=== PATIENT | male | born 1935 | race Caucasian/White ===

== ENCOUNTER 2020-05-14 15:41 | Emergency (ER) | payer MEDICARE, OTHER ==
--- NOTE | 2020-05-14 16:18 | EDM.PDOC ---
ED HPI GENERAL MEDICAL PROBLEM - General Chief Complaint: Skin Complaint Stated Complaint: POSS CELLULITIS TO L UPPER ARM Time Seen by Provider: 05/14/20 15:51 Source of Information: Reports: Patient History Limitations: Reports: No Limitations, Other (ED vital signs reveal a temp of 98.1, pulse 70, resp 17, BP 163/84 and pulse ox 100% on room air.) - History of Present Illness INITIAL COMMENTS - FREE TEXT/NARRATIVE: 85 year old male presents to the ED from [facility] with complaints of cellulitis to his bilateral arms. It is unknown when this started as the patient has significant demential and his son who brought him to the ED does not know either. Pt has redness and warmth to his left bicep almost circumfrentially and down to mid forearm on the dorsal aspect. Pt has small scabbed areas noted. It appears to be from scratching. Right upper bicep region also has erythema and warmth noted but not as severe as it is only located on the dorsal aspect of his humerus. Maculopapular rash also noted to right lower half of bicep and into right forearm. Pt is unable to tell me if this is pruritic or painful as he is a poor historian. Pt is afebrile in the ED. Onset: Unknown/Unsure Location: Reports: Upper Extremity, Left, Upper Extremity, Right - Related Data Allergies Allergy/AdvReac Type Severity Reaction Status Date / Time No Known Allergies Allergy Verified 05/14/20 15:54 Home Meds: Home Meds cephALEXin [Keflex] 500 mg PO QID #40 cap 05/14/20 [Rx] cephALEXin [Keflex] 500 mg PO QID #40 cap 05/14/20 [Rx] Past Medical History HEENT History: Reports: Impaired Vision Cardiovascular History: Reports: Afib, High Cholesterol, Hypertension Genitourinary History: Reports: BPH Neurological History: Reports: Alzheimers Disease Oncologic (Cancer) History: Reports: Prostate - Past Surgical History Cardiovascular Surgical History: Reports: Pacer Social & Family History - Tobacco Use Tobacco Use Status *Q: Never Tobacco User - Recreational Drug Use Recreational Drug Use: No ED ROS GENERAL - Review of Systems Review Of Systems: Comprehensive ROS is negative, except as noted in HPI. ED EXAM, SKIN/RASH Exam: See Below Exam Limited By: No Limitations General Appearance: Alert, WD/WN, No Apparent Distress Eye Exam: Bilateral Eye: PERRL Ears: Normal External Exam, Hearing Grossly Normal Nose: Normal Inspection Throat/Mouth: Normal Inspection, Normal Lips, Normal Voice, No Airway Compromise Head: Atraumatic, Normocephalic Neck: Normal Inspection, Supple, Non-Tender, Full Range of Motion Respiratory/Chest: No Respiratory Distress, Lungs Clear, Normal Breath Sounds, No Accessory Muscle Use, Chest Non-Tender Cardiovascular: Normal Peripheral Pulses, Regular Rate, Rhythm, No Murmur. No: No Edema (trace to bilateral lower extremities) Peripheral Pulses: 2+: Radial (L), Radial (R) GI/Abdominal: Normal Bowel Sounds, Soft, Non-Tender, No Distention (Male) Exam: Deferred Rectal (Males) Exam: Deferred Back Exam: Normal Inspection, Full Range of Motion Extremities: Normal Inspection, Normal Range of Motion, Non-Tender, Pedal Edema (trace to bilateral lower extremities), Increased Warmth (bilateral upper arms left worse than right. ), Redness (bilateral upper arms. Left is circumfrential; right is on the dorsal aspect of upper arm) Neurological: Alert. No: Oriented, Normal Cognition Psychiatric: Normal Affect, Normal Mood Skin: Warm, Dry, Intact, Increased Warmth (bilateral upper arms). No: Normal Color (increased redness noted to bilateral upper arms) Location, Skin: Upper Extremity, Right, Upper Extremity, Left Characteristics: Maculopapular (bilateral forearms in the proximal 1/3) Associated features: Warmth, Inflammation Lymphatic: No Adenopathy Course - Vital Signs Text/Narrative:: 85 year old male from [place] presenting with erythema and warmth to bilateral upper arms. Warmth and erythema worse on left than right. Left upper arm has numerous scabbed areas noted that appear to be from scratching. I have ordered a CBC, CMP, and CRP on this patient. Last Recorded V/S: Last Vital Signs Temp 98.1 F 05/14/20 15:51 Pulse 70 05/14/20 15:51 Resp 17 05/14/20 15:51 BP 163/84 H 05/14/20 15:51 Pulse Ox 100 05/14/20 15:51 - Orders/Labs/Meds Orders: Active Orders 24 hr Category Date Time Status CBC WITH AUTO DIFF [HEME] Stat Lab 05/14/20 16:17 Results Labs: Laboratory Tests 05/14/20 05/14/20 Range/Units 16:17 16:17 WBC 6.90 (4.23-9.07) K/mm3 RBC 4.67 (4.63-6.08) M/mm3 Hgb 13.3 L (13.7-17.5) gm/dl Hct 41.9 (40.1-51.0) % MCV 89.7 (79.0-92.2) fl MCH 28.5 (25.7-32.2) pg MCHC 31.7 L (32.2-35.5) g/dl RDW Std Deviation 43.9 (35.1-43.9) fL Plt Count 237 (163-337) K/mm3 MPV 8.5 L (9.4-12.3) fl Neut % (Auto) 42.1 (34.0-67.9) % Lymph % (Auto) 30.0 (21.8-53.1) % [place] % (Auto) 10.4 (5.3-12.2) % Eos % (Auto) 17.0 H (0.8-7.0) Baso % (Auto) 0.4 (0.1-1.2) % Neut # (Auto) 2.90 (1.78-5.38) K/mm3 Lymph # (Auto) 2.07 (1.32-3.57) K/mm3 [place] # (Auto) 0.72 (0.30-0.82) K/mm3 Eos # (Auto) 1.17 H (0.04-0.54) K/mm3 Baso # (Auto) 0.03 (0.01-0.08) K/mm3 Sodium 145 (136-145) mEq/L Potassium 3.8 (3.5-5.1) mEq/L Chloride 105 (98-107) mEq/L Carbon Dioxide 27 (21-32) mEq/L Anion Gap 16.8 H (5-15) BUN 24 H (7-18) mg/dL Creatinine 1.2 (0.7-1.3) mg/dL Est Cr Clr Drug Dosing 47.06 mL/min Estimated GFR (MDRD) 57 (>60) mL/min BUN/Creatinine Ratio 20.0 H (14-18) Glucose 109 (83-115) mg/dL Calcium 9.0 (8.5-10.1) mg/dL Total Bilirubin 0.3 (0.2-1.0) mg/dL AST 17 (15-37) U/L ALT 28 (16-63) U/L Alkaline Phosphatase 67 (46-116) U/L C-Reactive Protein 0.5 (<1.0) mg/dL Total Protein 7.1 (6.4-8.2) g/dl Albumin 3.5 (3.4-5.0) g/dl Globulin 3.6 gm/dL Albumin/Globulin Ratio 1.0 (1-2) - Re-Assessments/Exams Free Text/Narrative Re-Assessment/Exam: 05/14/20 17:10 Labs reveal a WBC of 6.90, hemoglobin 13.3, hematocrit 41.9, sodium 145, pot assium 3.8, anion gap 16.8, BUN 24, creatinine 1.2, C-reactive protein 0.5. Patient will be discharged to home with prescription for Keflex 4 times daily x10 days. Departure - Departure Time of Disposition: 17:10 Disposition: Home, Self-Care 01 Condition: Fair Clinical Impression: Cellulitis Qualifiers: Site of cellulitis: extremity Site of cellulitis of extremity: upper extremity Laterality: left Qualified Code(s): L03.114 - Cellulitis of left upper limb - Discharge Information Prescriptions: cephALEXin [Keflex] 500 mg PO QID #40 cap cephALEXin [Keflex] 500 mg PO QID #40 cap Instructions: Cellulitis, Adult, [id number] Referrals: Jamie Ramirez MD [Primary Care Provider] - Forms: ED Department Discharge Additional Instructions: Jose Angel was seen in the emergency department today with complaints of cellulitis to his bilateral upper extremities. Lab work was completed and it was unremarkable. He will be discharged home with prescription for Keflex 500 mg to be taken 4 times daily with meals and at bedtime. Please take this antibiotic in its entirety. Should his condition worsen or change please return to the emergency department. Sepsis Event Note (ED) - Evaluation Sepsis Screening Result: No Definite Risk - Focused Exam Vital Signs: Vital Signs Temp Pulse Resp BP Pulse Ox 05/14/20 15:51 98.1 F 70 17 163/84 H 100 - My Orders Last 24 Hours: My Active Orders 05/14/20 16:17 CBC WITH AUTO DIFF [HEME] Stat - Assessment/Plan Last 24 Hours: My Active Orders 05/14/20 16:17 CBC WITH AUTO DIFF [HEME] Stat
== END 2020-05-14 17:25 | disposition home or self-care (01) ==
LOC: JD.ED 15:41
DX: L03.114 Cellulitis of left upper limb (principal); L03.113 Cellulitis of right upper limb; F03.90 Unspecified dementia, unspecified severity, without behavioral disturbance, psychotic disturbance, mood disturbance, and anxiety; I10 Essential (primary) hypertension; I48.91 Unspecified atrial fibrillation
CPT/HCPCS: 36415; 80053; 85025; 86140; 99283

== ENCOUNTER 2022-07-11 14:05 | Inpatient (IN) | payer MEDICARE, OTHER ==
[2022-07-11] MEDS: Lactated Ringers 1,000 ML IV SCH (15:41)
[2022-07-11 15:44] LABS: ESTIMATED GFR 45 mL/min (>60)
[2022-07-11] MEDS: Heparin Sodium 5,000 Units/ML Vial SUBCUT SCH (17:29)
[2022-07-12] MEDS: Lactated Ringers 1,000 ML IV SCH (00:58)
[2022-07-12] MEDS: Heparin Sodium 5,000 Units/ML Vial SUBCUT SCH (00:58)
[2022-07-12] MEDS ORDERED: Potassium Chloride 20 MEQ in Dextrose 5% in Water 1,000 ML IV SCH ×4 (06:15)
[2022-07-12] MEDS ORDERED: Potassium Chloride 20 MEQ Tab.ER PO ONE ×2 (06:32→09:00)
[2022-07-12] MEDS ORDERED: Sertraline 50 MG Tab PO SCH (09:00)
[2022-07-12] MEDS: Metoprolol Tartrate 50 MG Tab PO SCH ×2 (09:23→20:35)
[2022-07-12] MEDS: Potassium Chloride 20 MEQ in Dextrose 5% in Water 1,000 ML IV SCH ×4 (09:24→23:33)
[2022-07-12] MEDS: Rivaroxaban 10 MG Tab PO SCH (18:26)
[2022-07-13] MEDS: Metoprolol Tartrate 50 MG Tab PO SCH ×2 (08:18→20:22)
[2022-07-13] MEDS: Potassium Chloride 20 MEQ in Dextrose 5% in Water 1,000 ML IV SCH ×2 (15:35)
[2022-07-13] MEDS: Rivaroxaban 10 MG Tab PO SCH (18:06)
[2022-07-13] MEDS: Thiamine 100 MG Tab PO SCH (20:22)
[2022-07-14] MEDS: Potassium Chloride 20 MEQ in Dextrose 5% in Water 1,000 ML IV SCH ×4 (05:31→11:28)
[2022-07-14] MEDS ORDERED: Potassium Chloride 20 MEQ in Dextrose 5% in Water 1,000 ML IV SCH ×2 (07:45)
[2022-07-14] MEDS: Donepezil 10 MG Tab PO SCH ×2 (08:01→20:22)
[2022-07-14] MEDS: Metoprolol Tartrate 50 MG Tab PO SCH ×2 (08:01→20:21)
[2022-07-14] MEDS: Rivaroxaban 10 MG Tab PO SCH (18:01)
[2022-07-14] MEDS: Thiamine 100 MG Tab PO SCH (20:22)
[2022-07-14] MEDS: QUEtiapine 25 MG Tab PO SCH (20:22)
[2022-07-15] MEDS: Potassium Chloride 20 MEQ in Dextrose 5% in Water 1,000 ML IV SCH ×4 (01:37→22:07)
[2022-07-15] MEDS ORDERED: Magnesium Hydroxide 400 MG/5 ML Susp 30 ML Cup PO ONE (08:00)
[2022-07-15] MEDS: Metoprolol Tartrate 50 MG Tab PO SCH ×2 (09:03→20:26)
[2022-07-15] MEDS: Donepezil 10 MG Tab PO SCH ×2 (09:04→20:26)
[2022-07-15] MEDS: Rivaroxaban 10 MG Tab PO SCH (18:13)
[2022-07-15] MEDS: Thiamine 100 MG Tab PO SCH (20:26)
[2022-07-15] MEDS: QUEtiapine 25 MG Tab PO SCH (20:26)
[2022-07-16] MEDS: Donepezil 10 MG Tab PO SCH ×2 (08:09→20:24)
[2022-07-16] MEDS: Metoprolol Tartrate 50 MG Tab PO SCH ×2 (08:09→20:24)
[2022-07-16] MEDS ORDERED: Potassium Chloride 20 MEQ Tab.ER PO ONE ×2 (12:21→15:30)
[2022-07-16] MEDS: Rivaroxaban 10 MG Tab PO SCH (18:13)
[2022-07-16] MEDS: QUEtiapine 25 MG Tab PO SCH (20:24)
[2022-07-16] MEDS: Thiamine 100 MG Tab PO SCH (20:24)
[2022-07-17] MEDS: Metoprolol Tartrate 50 MG Tab PO SCH ×2 (08:36→21:17)
[2022-07-17] MEDS: Donepezil 10 MG Tab PO SCH ×2 (08:37→21:18)
[2022-07-17] MEDS: Rivaroxaban 10 MG Tab PO SCH (18:15)
[2022-07-17] MEDS: QUEtiapine 25 MG Tab PO SCH (21:18)
[2022-07-17] MEDS: Thiamine 100 MG Tab PO SCH (21:18)
[2022-07-18] MEDS: Metoprolol Tartrate 50 MG Tab PO SCH (08:03)
[2022-07-18] MEDS: Donepezil 10 MG Tab PO SCH (08:03)
== END 2022-07-18 12:17 | disposition home or self-care (01) | DRG 682 ==
LOC: JD.ED 14:05 → JD.MS 16:10
PROVIDERS: ADMIT Internal Medicine; ATTEND Internal Medicine
DX: N17.9 Acute kidney failure, unspecified (principal); G93.41 Metabolic encephalopathy; E87.0 Hyperosmolality and hypernatremia; I48.91 Unspecified atrial fibrillation; E86.0 Dehydration; E87.6 Hypokalemia; E78.00 Pure hypercholesterolemia, unspecified; I10 Essential (primary) hypertension; N40.0 Benign prostatic hyperplasia without lower urinary tract symptoms; G30.9 Alzheimer's disease, unspecified; F02.C0 Dementia in other diseases classified elsewhere, severe, without behavioral disturbance, psychotic disturbance, mood disturbance, and anxiety; Z66 Do not resuscitate; R73.9 Hyperglycemia, unspecified; Z79.899 Other long term (current) drug therapy
CPT/HCPCS: 36415; 80048; 80053; 81001; 83735; 85025; 85027; 96360; 97162-GP; 97166-GO; 97530-GO; 97530-GP; 99223; 99239; 99284; 99285-25; A9270-GY; J1644; J3480; J7060; J7120